=== PATIENT | female | born 1960 | race Caucasian/White ===

== ENCOUNTER → 2018-01-14 | Outpatient (CLI) | payer OTHER ==
--- NOTE | 2018-01-15 13:44 | MM ---
Reason for exam: screening (asymptomatic). Last mammogram was performed 11 years and 1 month ago. History: Family history of breast cancer in aunt at age 40. Took hormonal contraceptives for 14 years beginning at age 32. Physical Findings: A clinical breast exam by your physician is recommended on an annual basis and results should be correlated with mammographic findings. MG 3D Screening Mammo W/Cad Bilateral CC and MLO view(s) were taken. Prior study comparison: April 17, 2015, mammogram, performed at [facility]. May 17, 2014, mammogram, performed at [facility]. The breast tissue is heterogeneously dense. This may lower the sensitivity of mammography. Stable benign calcifications. New nodular density upper outer left breast 6.3cm from nipple. ASSESSMENT: Incomplete: need additional imaging evaluation, BI-RAD 0 RECOMMENDATION: Special view mammogram of the left breast. Ultrasound of the right breast. [facility] will attempt to contact patient to return for supplemental views and ultrasound.
== END | disposition home or self-care (01) ==
LOC: RADMAMWWP 16:58
PROVIDERS: ATTEND Family Medicine
DX: Z12.31 Encounter for screening mammogram for malignant neoplasm of breast (principal)
CPT/HCPCS: 77063; 77067

== ENCOUNTER → 2018-01-29 | Outpatient (CLI) | payer OTHER ==
--- NOTE | 2018-01-29 14:31 | MM ---
Reason for exam: additional evaluation requested from abnormal screening. Last mammogram was performed less than 1 month ago. History: Patient is postmenopausal. Family history of breast cancer in aunt at age 40. Took hormonal contraceptives for 14 years beginning at age 32. Physical Findings: Nurse Summary: 0.5cm nodule in the left breast at 1 o'clock (nurse dw). MG 3D Work Up W/Cad LT Spot compression CC, spot compression MLO, and ML view(s) were taken of the left breast. Prior study comparison: January 14, 2018, bilateral MG 3d screening mammo w/cad. April 17, 2015, mammogram, performed at [facility]. Finding: There is a persistent 6-7 mm circumscribed round mass in the upper outer quadrant, posterior middle position of the left breast. These results were verbally communicated with the patient and result sheet given to the patient on 01/29/18. ASSESSMENT: Incomplete: need additional imaging evaluation, BI-RAD 0 RECOMMENDATION: Ultrasound of the left breast. (mammographic abnormality and palpable by nurse)
--- NOTE | 2018-01-29 14:33 | USB ---
Reason for exam: additional evaluation requested from abnormal screening. History: Patient is postmenopausal. Family history of breast cancer in aunt at age 40. Took hormonal contraceptives for 14 years beginning at age 32. US Breast Workup Limited LT Left limited breast ultrasound including focal area of concern, retroareolar and axilla demonstrates a 0.5 x 0.3 x 0.6cm cystic, mixed lesion too small to characterize at 2 o'clock, favor debris filled cyst. These results were verbally communicated with the patient and result sheet given to the patient on 01/29/18. ASSESSMENT: Probably benign, BI-RAD 3 RECOMMENDATION: Follow-up diagnostic mammogram and ultrasound of the left breast in 6 months.
== END | disposition home or self-care (01) ==
LOC: RADMAMWWP 12:56
PROVIDERS: ATTEND Family Medicine
DX: R92.8 Other abnormal and inconclusive findings on diagnostic imaging of breast (principal)
CPT/HCPCS: 77061; 77065

== ENCOUNTER 2018-03-27 08:05 | Day surgery (SDC) | payer OTHER ==
[2018-03-25 10:32] VITALS: BMI 24.5
[~2018-03-27 08:05] MED LIST: LACTATED RINGERS 1,000 ML IV SCH
[2018-03-27 08:29] VITALS: RESP 16; TEMP 97.8
[2018-03-27] MEDS ORDERED: PROPOFOL 10 MG/ML 20 ML VIAL IV ONE (09:09)
[2018-03-27] MEDS ORDERED: LIDOCAINE 1% INJ 10MG/ML (20 ML MDV) ONE (09:09)
[2018-03-27] MEDS ORDERED: MIDAZOLAM 2 MG/2 ML VIAL ONE (09:09)
[2018-03-27] MEDS ORDERED: GLYCOPYRROLATE 0.2 MG/ML 2 ML VIAL ONE (09:09)
--- NOTE | 2018-03-27 09:18 | P.GSHP ---
History of Present Illness H&P Date: 03/27/18 Chief Complaint: Colon cancer screening Patient is a history of colon polyps. Last colonoscopy 3-1/2 years ago. She also has a family history of colon cancer in her father. At the time of her last colonoscopy she had a postoperative bleed requiring transfusion. Otherwise doing well at this time. Past Medical History Past Medical History: Thyroid Disorder History of Any Multi-Drug Resistant Organisms: None Reported Past Surgical History: Bladder Surgery, Cholecystectomy, Orthopedic Surgery Additional Past Surgical History / Comment(s): Claude. bunionectomy 1999- has screws & pins in, COLONOSCOPY WITH POLYPS REMOVED 08/01/14.-ENDED UP IN ICU WITH EXCESSIVE BLEEDING WAS IN HOSPITAL FOR ABOUT 1 WEEK AND HAD TO HAVE A BLOOD TRANSFUSION. BLADDER SLING Past Anesthesia/Blood Transfusion Reactions: No Reported Reaction Additional Past Anesthesia/Blood Transfusion Reaction / Comment(s): 07/2014 AFTER COLONOSCOPY AND POLYP REMOVAL-ENDED UP IN ICU WITH EXCESSIVE BLEEDING WAS IN HOSPITAL FOR ABOUT 1 WEEK. HAD TO HAVE A BLOOD TRANSFUSION Smoking Status: Former smoker - Past Family History Father Family Medical History: Cancer Additional Family Medical History / Comment(s): COLON CA METS TO LIVER Medications and Allergies Home Medications Medication Instructions Recorded Confirmed Type Ergocalciferol [Vitamin D2 50,000 unit PO Q14D 07/28/14 03/27/18 History (DRISDOL)] Escitalopram Oxalate [Lexapro] 10 mg PO DAILY 03/25/18 03/27/18 History Levothyroxine Sodium 100 mcg PO DAILY 03/25/18 03/27/18 History Allergies Allergy/AdvReac Type Severity Reaction Status Date / Time Penicillins Allergy Rash/Hives Verified 03/27/18 08:21 Surgical - Exam Vital Signs Temp Pulse Resp BP Pulse Ox 97.8 F 70 16 162/75 99 03/27/18 08:27 03/27/18 08:27 03/27/18 08:27 03/27/18 08:27 03/27/18 08:27 Physical exam: General: Well-developed, well-nourished HEENT: Normocephalic, sclerae nonicteric Abdomen: Nontender, nondistended Extremities: No edema Neuro: Alert and oriented Assessment and Plan (1) Colon cancer screening Narrative/Plan: Will proceed with colonoscopy at this time Current Visit: Yes Status: Acute Code(s): Z12.11 - ENCOUNTER FOR SCREENING FOR MALIGNANT NEOPLASM OF COLON SNOMED Code(s): 078007675
--- NOTE | 2018-03-27 09:40 | P.PCN ---
Date of Procedure: 03/27/18 Procedure(s) Performed: PREOPERATIVE DIAGNOSIS: Personal history of colon polyps, family history colon cancer, screening POSTOPERATIVE DIAGNOSIS: Rectal polyp PROCEDURE: Colonoscopy with snare polypectomy ANESTHESIA: MAC SURGEON: Thom Coombs M.D. SPECIMENS: Rectal polyp ENDOSCOPIC PROCEDURE: The patient was placed on the endoscopy table in the left decubitus position. The Olympus colonoscope was inserted into the anus and passed under direct visualization to the base of the cecum. The appendiceal orifice was visualized. From that point the scope was slowly withdrawn inspecting all surfaces carefully. There were no neoplastic inflammatory or polypoid lesions throughout the cecum, ascending, transverse, descending, and sigmoid colon. Attention to the proximal ascending colon where the previous flap polyp was identified took place. There was no residual polypoid tissue seen however. In the rectum a small polyp was identified and removed using the snare with cautery technique. The remainder the rectum appeared normal. The patient had minimal left-sided diverticulosis present. Digital rectal examination was normal. The patient was taken to the recovery room in stable condition per anesthesia guidelines. RECOMMENDATIONS: Await biopsy results. Recommend follow-up colonoscopy 5 years.
[2018-03-27 10:00] VITALS: BP 116/76; PULSE 57
== END 2018-03-27 10:39 | disposition home or self-care (01) ==
LOC: ORWHC2ENDO 08:05
PROVIDERS: ATTEND Surgery
DX: Z12.11 Encounter for screening for malignant neoplasm of colon (principal); D12.8 Benign neoplasm of rectum; K57.30 Diverticulosis of large intestine without perforation or abscess without bleeding; Z86.010 Personal history of colon polyps; Z80.0 Family history of malignant neoplasm of digestive organs; E07.9 Disorder of thyroid, unspecified; F41.9 Anxiety disorder, unspecified; F32.9 Major depressive disorder, single episode, unspecified; Z79.899 Other long term (current) drug therapy; Z79.890 Hormone replacement therapy; Z88.0 Allergy status to penicillin; Z90.49 Acquired absence of other specified parts of digestive tract; Z87.891 Personal history of nicotine dependence
CPT/HCPCS: 88305; 45385; J2250; J2001; J2704

== ENCOUNTER → 2018-08-31 | Outpatient (CLI) | payer OTHER ==
--- NOTE | 2018-08-31 11:09 | MM ---
Reason for exam: follow-up at short interval from prior study. Last mammogram was performed 7 months ago. History: Patient is postmenopausal. Family history of breast cancer in aunt at age 40. Took hormonal contraceptives for 14 years beginning at age 32. Physical Findings: Nurse did not find any significant physical abnormalities on exam. MG 3D Diag Mammo W/Cad LT CC and MLO view(s) were taken of the left breast. Prior study comparison: January 29, 2018, left breast MG 3d work up w/cad LT. January 14, 2018, bilateral MG 3d screening mammo w/cad. There are scattered fibroglandular densities. 9mm mass posterior upper outer quadrant left breast measured 6mm previously. These results were verbally communicated with the patient and result sheet given to the patient on 08/31/18. ASSESSMENT: Incomplete: need additional imaging evaluation, BI-RAD 0 RECOMMENDATION: Ultrasound of the left breast. (upper outer quadrant)
--- NOTE | 2018-08-31 11:12 | USB ---
Reason for exam: additional evaluation requested from abnormal screening. History: Patient is postmenopausal. Family history of breast cancer in aunt at age 40. Took hormonal contraceptives for 14 years beginning at age 32. US Breast LT Left complete breast ultrasound includes all four quadrants, the retroareolar region and axilla. Finding demonstrates a 5 x 4 x 8mm lobular lesion at 2 o'clock versus 5 x 3 x 6mm previously, located deep. Has through transmission. Maybe cystic. Given lobulation and increasing size on mammogram, biopsy recommended with clip placement and mammogram correlation. These results were verbally communicated with the patient and result sheet given to the patient on 08/31/18. ASSESSMENT: Suspicious, BI-RAD 4 RECOMMENDATION: Ultrasound core biopsy of the left breast. Called Dr. Stern with mammographic findings and has scheduled an appointment for the patient for 10/08/18 at 9:[address] Coombs. Biopsy scheduled for 09/17/18 at 12:20. PRELIMINARY REPORT CALLED AND FAXED TO DR. COOMBS ON 08/31/18.
== END | disposition home or self-care (01) ==
LOC: RADMAMWWP 08:14
PROVIDERS: ATTEND Family Medicine
DX: R92.2 Inconclusive mammogram (principal); R92.8 Other abnormal and inconclusive findings on diagnostic imaging of breast
CPT/HCPCS: 77061; 77065

== ENCOUNTER → 2018-09-17 | Day surgery (SDC) | payer OTHER ==
[2018-09-17 11:47] VITALS: RESP 14; TEMP 97.5; BMI 29.7
--- NOTE | 2018-09-17 13:04 | USB ---
EXAMINATION TYPE: US breast aspiration single LT DATE OF EXAM: 09/17/2018 COMPARISON: 01/14/2018 CLINICAL HISTORY: R92.8 Abnormal mammogram. PROCEDURE: Informed consent was obtained. Preprocedural timeout was performed. The patient was prepped and draped in usual fashion. 10 cc of 1% lidocaine without epinephrine buffered with bicarbonate was utilized to anesthetize the subcutaneous tissues and skin surface measuring up to a 5 x 4 x 8 mm lesion at the 2:00 position that had demonstrated interval growth and increased size on the prior mammogram. Under ultrasound guidance an 18-gauge spinal needle was utilized to aspirate a scant amount of thin cloudy fluid. Biopsy marker was placed at the site of aspiration and post mammogram demonstrates concordance with the increasing left upper quadrant focal asymmetry/mass. No complication was seen during the examination. The patient tolerated the procedure well and was stable upon discharge. The fluid was sent to the laboratory for analysis. IMPRESSION: Status post successful cyst aspiration of an increasing left upper outer quadrant mass at the 2:00 position. Postprocedural mammogram demonstrates concordance with the mammographic increasing mass. Pathology pending. Pathology Results: Benign LEFT BREAST LESION, FINE NEEDLE ASPIRATION: Peripheral blood admixed with fragments of ductal epithelium. Cells cytologically diagnostic of malignant neoplasm are not identified. Recommendation Follow up ultrasound of the left breast in 6 months. JENNYD
[2018-09-17 13:12] VITALS: BP 147/93; PULSE 71
--- NOTE | 2018-09-17 13:15 | MM ---
Reason for exam: additional evaluation requested from abnormal screening. Last mammogram was performed 1 month ago. History: Patient is postmenopausal. Family history of breast cancer in aunt at age 40. Took hormonal contraceptives for 14 years beginning at age 32. MG Diagnostic Mammo LT Wo CAD CC and LM view(s) were taken of the left breast. Prior study comparison: August 31, 2018, left breast MG 3d diag mammo w/cad LT. January 29, 2018, left breast MG 3d work up w/cad LT. ASSESSMENT: Post procedure mammogram for marker placement RECOMMENDATION: Ultrasound of the left breast in 6 months. PENDING PATHOLOGY RESULTS.
== END | disposition home or self-care (01) ==
LOC: RADMAMWWP 11:11
PROVIDERS: ATTEND Surgery
DX: R92.8 Other abnormal and inconclusive findings on diagnostic imaging of breast (principal); N64.89 Other specified disorders of breast; Z78.0 Asymptomatic menopausal state; Z80.3 Family history of malignant neoplasm of breast
CPT/HCPCS: 88305; 88173; 77065; 76942; 19000; A4648; J2001

== ENCOUNTER → 2018-12-09 | Outpatient (CLI) | payer OTHER ==
--- NOTE | 2018-12-09 15:25 | MR ---
EXAMINATION TYPE: MR brain wo/w con DATE OF EXAM: 12/09/2018 COMPARISON: NONE HISTORY: Confusion TECHNIQUE: Multiplanar, multisequence images of the brain and brainstem is performed without and with IV contras t, utilizing 7 mL intravenous Gadavist . FINDINGS: Diffusion weighted images demonstrate no evidence of a recent infarct or other diffusion ab normality. There is no extra-axial fluid collection or significant white matter signal abnormality. The ventricular system and cisternal spaces are normal in size and appearance. The brain volume is age appropriate. Midline structures demonstrate normal morphology. Incidentally noted 7 mm nonenhancing pineal gland c yst without significant mass effect on the superior tectum nor cerebral aqueduct narrowing. The cran iocervical junction appears within normal limits. Post contrast images demonstrate no abnormal enhan cement. The dural venous sinuses appear patent. Scant mucosal thickening is present of the ethmoid si nuses. The remaining visualized sinuses are clear and the globes are intact. There is partial opacifi cation of the left mastoid air cells. There is very minimal rightward nasal septal deviation and muco braxton hypertrophy of the nasal turbinates. Scant secretions are seen within the posterior nasopharynx. IMPRESSION: 1. No acute infarct, midline shift or mass effect. No abnormal intracranial enhancement. 2. Partial opacification of the left mastoid air cells. Correlate with point tenderness to exclude ma stoiditis. 3. Mild mucosal thickening in the ethmoid sinuses and nasal turbinate mucosal hypertrophy. Scant secr etions in the posterior nasopharynx. 4. No significant white matter change. 5. Incidentally noted small pineal gland cyst. No impression on the superior tectum nor cerebral aque duct narrowing.
== END | disposition home or self-care (01) ==
LOC: RADMRIMAIN 07:42
PROVIDERS: ATTEND Family Medicine
DX: F98.9 Unspecified behavioral and emotional disorders with onset usually occurring in childhood and adolescence (principal); R79.9 Abnormal finding of blood chemistry, unspecified; R41.82 Altered mental status, unspecified
CPT/HCPCS: 70553; A9585

== ENCOUNTER → 2020-08-03 | Outpatient (CLI) | payer OTHER ==
--- NOTE | 2020-08-07 13:32 | MM ---
Reason for exam: additional evaluation requested from prior study. Last mammogram was performed 1 year and 11 months ago. History: Patient is postmenopausal. Family history of breast cancer in aunt at age 40. Benign US breast aspiration single LT of the left breast, September 17, 2018. Took hormonal contraceptives for 14 years beginning at age 32. Took estrogen beginning at age 58. Physical Findings: Nurse did not find any significant physical abnormalities on exam. MG 3D Diag Mammo W/Cad OLEG Bilateral CC and MLO view(s) were taken. Prior study comparison: September 17, 2018, left breast MG diagnostic mammo LT wo CAD. August 31, 2018, left breast MG 3d diag mammo w/cad LT. Previous mammotome biopsy in the left breast. No significant new findings when compared with previous films. These results were verbally communicated with the patient and result sheet given to the patient on 08/03/20. ASSESSMENT: Benign, BI-RAD 2 RECOMMENDATION: Routine screening mammogram of both breasts in 1 year.
== END | disposition home or self-care (01) ==
LOC: RADMAMWWP 13:43
PROVIDERS: ATTEND Surgery
DX: R92.8 Other abnormal and inconclusive findings on diagnostic imaging of breast (principal)
CPT/HCPCS: 77062; 77066

== ENCOUNTER 2022-12-04 18:44 | Emergency (ER) | payer OTHER ==
[2022-12-04] MEDS ORDERED: SODIUM BICARB 8.4% 50 ML SYR (1 MEQ/ML) ONE (18:46)
[2022-12-04] MEDS ORDERED: EPINEPHrine 10 ML SYRINGE (0.1 MG/ML) ONE (18:46)
[2022-12-04] MEDS ORDERED: AMIODARONE 50 MG/ML 3 ML VIAL IV ONE (18:46)
[2022-12-04 18:59] LABS: Glucose,Whole Blood 73 mg/dL (70-110)
[2022-12-04 19:17] VITALS: RESP 0
--- NOTE | 2023-01-02 06:33 | ED ---
CPR HPI - General Chief Complaint: Cardiac Arrest/CPR Stated Complaint: Unresponsive Time Seen by Provider: 12/04/22 19:03 Source: EMS Mode of arrival: EMS Limitations: altered mental status - History of Present Illness Initial Comments: This patient is a 62-year-old woman brought by ambulance after she collapsed and became unresponsive. The patient reportedly had chest pain on the day prior and then was having chest pain again today. The patient's family had suggested she be seen by physician but she felt that it was indigestion and did not want to go in. The patient became unresponsive and EMS was called. Patient not able to give any history. MD Complaint: collapsed during rest -: minute(s) Place: home Bystander CPR Performed: No AED Applied by Bystander/Clothing Man: Yes Shock Advised: No Initial Findings in the Field: unresponsive ROSC in the Field: No Associated Injuries: No Associated Symptoms: chest pain Treatments Prior to Arrival: intubation, chest compressions, epinephrine mgs # - Related Data Home Medications Medication Instructions Recorded Confirmed Ergocalciferol [Vitamin D2 50,000 unit PO Q14D 07/28/14 09/17/18 (DRISDOL)] Levothyroxine Sodium 100 mcg PO DAILY 03/25/18 09/17/18 Allergies Allergy/AdvReac Type Severity Reaction Status Date / Time Penicillins Allergy Intermediate Rash/Hives Verified 09/17/18 11:36 Review of Systems ROS Statement: Those systems with pertinent positive or pertinent negative responses have been documented in the HPI. ROS Other: All systems not noted in ROS Statement are negative. Limitations: ROS unobtainable due to patients medical condition Past Medical History Past Medical History: Thyroid Disorder Additional Past Medical History / Comment(s): hypothyroidism History of Any Multi-Drug Resistant Organisms: None Reported Past Surgical History: Cholecystectomy, Orthopedic Surgery Additional Past Surgical History / Comment(s): Claude. bunionectomy 1999- has screws & pins in, COLONOSCOPY WITH POLYPECTOMY REMOVED 08/01/14 (LED TO HOSPITALIZATION SECONDARY TO HEMORRHAGING). "T.O.T. SLHILARIO" APR 2016 Past Anesthesia/Blood Transfusion Reactions: No Reported Reaction Additional Past Anesthesia/Blood Transfusion Reaction / Comment(s): PATIENT STATES SHE DID HAVE A BLOOD TRANSFUSION FOLLOWING HEMORRAGING SECONDARY TO POLYPECTOMY IN 2015: NO REACTIONS Past Psychological History: No Psychological Hx Reported Past Alcohol Use History: Occasional Past Drug Use History: None Reported - Past Family History Mother Family Medical History: No Reported History Father Family Medical History: Cancer Additional Family Medical History / Comment(s): AT AGE 81 FROM COLON CA WITH METS TO LIVER General Exam General appearance: other (Patient is unresponsive and intubated) Head exam: Present: atraumatic, normocephalic Eye exam: Absent: PERRL, EOMI, scleral icterus, conjunctival injection ENT exam: Present: other (There is an endotracheal tube present) Neck exam: Present: normal inspection, other (No step-off or bony deformity) Respiratory exam: Present: rhonchi, other (There is no spontaneous inspiratory effort or chest wall movement. Auscultation during bag breathing reveals few rhonchi) Cardiovascular Exam: Present: other (There is no palpable PMI. There are no palpable pulses. There are no cardiac sounds). Absent: normal heart sounds GI/Abdominal exam: Present: soft. Absent: tenderness, guarding, mass, pulsatile mass, hernia Extremities exam: Present: normal inspection, other (No bony deformity or evidence of trauma) Back exam: Present: normal inspection, other (No step-off or deformity. No evidence of trauma) Neurological exam: Present: other (Patient has no neurologic activity. No cranial nerve or deep tendon reflexes. GCS 3) Expanded Eye Response: (1) no response Motor Response: (1) no motor response Verbal Response: (1) no verbal response Skin exam: Present: dry, intact, cyanosis. Absent: normal color, rash Course Vital Signs 12/04/22 19:12 Respiratory 0 L Rate O2 Sat by Pulse 0 L Oximetry Medical Decision Making - Medical Decision Making This patient is 62-year-old woman brought by ambulance with report that she had collapsed and become unresponsive. EMS on arrival had started ATLS protocol. The patient was intubated in the field, had chest compressions, had medications, with no ROSC. ACLS is continued in the department, see the code sheet. After number of rounds of medications, with no response, I did go and discuss with the patient's family, they gave the additional history that the patient had been having chest pains on the day prior and throughout today. The patient pronounced , I did discuss with family members. I did discuss with the resident medical officer. Please note that this is a replacement dictation, the original appears to have been lost from the system Was pt. sent in by a medical professional or institution (, [facility], [facility], urgent care, hospital, or correction...) When possible be specific @ -[No] Did you speak to anyone other than the patient for history (EMS, parent, family, police, friend...)? What history was obtained from this source @ -[EMS and patient family gave history. patient unresponsive and not able to give any history Did you review nursing and triage notes (agree or disagree)? Why? @ -[I reviewed and agree with nursing and triage notes] Were old charts reviewed (outside hosp., previous admission, EMS record, old EKG, old radiological studies, urgent care reports/EKG's, correction records)? Report findings @ -[No old charts were reviewed] Differential Diagnosis (chest pain, altered mental status, abdominal pain women, abdominal pain men, vaginal bleeding, weakness, fever, dyspnea, syncope, headache, dizziness, GI bleed, back pain, seizure, CVA, palpatations, mental health, musculoskeletal)? @ -[Differential diagnosis includes cardiopulmonary arrest, aortic dissection, massive CVA, massive pulmonary embolism, amongst other conditions EKG interpreted by me (3pts min.). @ -[The field seismologist as interpreted by myself showed asystole X-rays interpreted by me (1pt min.). @ -[None done] CT interpreted by me (1pt min.). @ -[None done] U/S interpreted by me (1pt. min.). @ -[None done] What testing was considered but not performed or refused? (CT, X-rays, U/S, labs)? Why? @ -[None] What meds were considered but not given or refused? Why? @ -[None] Did you discuss the management of the patient with other professionals (professionals i.e. [facility] Childress, [facility], lab, RT, psych nurse, high school social science teacher, chronic disease manager, teacher, correction officer city or county jail, telephonic case manager)? Give summary @ -[No] Was smoking cessation discussed for >3mins.? @ -[No] Was critical care preformed (if so, how long)? @ -[No] Were there social determinants of health that impacted care today? How? (Homelessness, low income, unemployed, alcoholism, drug addiction, transportation, low edu. Level, literacy, decrease access to med. care, half-way, rehab)? @ -[No] Was there de-escalation of care discussed even if they declined (Discuss DNR or withdrawal of care, Hospice)? DNR status @ -[No] What co-morbidities impacted this encounter? (DM, HTN, Smoking, COPD, CAD, Cancer, CVA, ARF, Chemo, Hep., AIDS, mental health diagnosis, sleep apnea, morbid obesity)? @ -[None] Was patient admitted / discharged? Hospital course, mention meds given and route, prescriptions, significant lab abnormalities, going to OR and other pertinent info. @ -[Patient is pronounced Undiagnosed new problem with uncertain prognosis? @ -[No] Drug Therapy requiring intensive monitoring for toxicity (Heparin, Nitro, Insulin, Cardizem)? @ -[No] Were any procedures done? @ -[No] Diagnosis/symptom? @ -[Acute cardiopulmonary arrest Acute, or Chronic, or Acute on Chronic? @ -[default] Uncomplicated (without systemic symptoms) or Complicated (systemic symptoms)? @ -[default] Side effects of treatment? @ -[No] Exacerbation, Progression, or Severe Exacerbation? @ -[No] Poses a threat to life or bodily function? How? (Chest pain, [place], [place], pneumonia, PE, COPD, DKA, ARF, appy, cholecystitis, CVA, Diverticulitis, Homicidal, Suicidal, threat to staff... and all critical care pts) @ -[yes - Lab Data Lab Results 12/04/22 Range/Units 18:58 POC Glucose (mg/dL) 73 (70-110) mg/dL POC Glu Development Spec ID Halima Cannon Disposition Clinical Impression: Sudden cardiac Disposition: Condition: Undetermined Referrals: None,Stated [Primary Care Provider] - 1-2 days Preliminary Cause of : Acute cardiopulmonary arrest
== END 2022-12-04 23:11 | disposition expired ==
LOC: EC 18:44
DX: I46.9 Cardiac arrest, cause unspecified (principal); E03.9 Hypothyroidism, unspecified; Z88.0 Allergy status to penicillin; Z79.890 Hormone replacement therapy
CPT/HCPCS: 36415; 92950; 99285; J0282; J0171